=== PATIENT | female | born 1935 | race Caucasian/White ===

== ENCOUNTER 2017-04-06 16:04 | Emergency (ER) | payer MEDICARE, OTHER ==
[~2017-04-06 16:04] MED LIST: CIPR250T6 PO
[2017-04-06] MEDS ORDERED: IOPAMIDOL-370 75 ML VIAL IV ONE (16:16)
[2017-04-06] MEDS ORDERED: ONDANSETRON HCL 4 MG/2 ML VIAL ONE (16:22)
[2017-04-06] MEDS ORDERED: SODIUM CHLORIDE 0.9% 500ML 500 ML IV ONE (17:25)
[2017-04-06 17:41] LABS: CREATININE 0.7 mg/dL (0.5-1.5); POTASSIUM 3.5 mmol/L (3.5-5.1)
[2017-04-06 17:42] LABS: INR 0.94 (0.85-1.15); PARTIAL THROMBOPLASTIN TIME 21.8 SEC (26.3-35.5); PROTHROMBIN TIME 9.9 SEC (9.6-11.6)
[2017-04-06 17:46] LABS: ALBUMIN 3.4 g/dL (3.5-5.0); BILIRUBIN,TOTAL 0.3 mg/dL (0.2-1.0); TOTAL PROTEIN, SERUM 6.4 g/dL (6.0-8.3)
[2017-04-06 18:30] LABS: BASOPHILS % (AUTO) 0.3 % (0.0-5.0); EOSINOPHILS % (AUTO) 0.9 % (0.0-8.0); HEMATOCRIT 35.4 % (36-48); LYMPHOCYTES % (AUTO) 16.6 % (21.0-51.0); MEAN CORPUSCULAR HEMOGLOBIN 31.9 pg (27.0-33.0); MEAN CORPUSCULAR HGB CONC 34.7 g/dL (32.0-36.0); MONOCYTES % (AUTO) 8.3 % (3.0-13.0); NEUTROPHILS % (AUTO) 73.9 % (40.0-77.0); NUCLEATED RED BLOOD CELLS 0.1 % (0.0-0.19); PLATELET COUNT (AUTO) 207 K/uL (130-400); RED BLOOD CELL COUNT(AUTO) 3.85 MIL/uL (4.00-5.50); RED CELL DISTRIBUTION WIDTH 11.9 % (11.0-15.5); WHITE BLOOD COUNT (AUTO) 6.5 K/uL (4.8-10.8)
== END 2017-04-06 21:19 | disposition home or self-care (01) ==
LOC: EDH 16:04
DX: S01.01XA Laceration without foreign body of scalp, initial encounter (principal); R55 Syncope and collapse; I10 Essential (primary) hypertension; Z86.73 Personal history of transient ischemic attack (TIA), and cerebral infarction without residual deficits; W18.39XA Other fall on same level, initial encounter; Y93.89 Activity, other specified; Y92.89 Other specified places as the place of occurrence of the external cause; Y99.8 Other external cause status
CPT/HCPCS: 12031; 36415; 70450; 71260; 72125; 74177; 80053; 83880; 84484; 85025; 85610; 85730; 93005; 96361; 96374; 99285; J2405; J7040; Q9967

== ENCOUNTER 2017-06-22 12:32 | Inpatient (IN) | payer OTHER ==
[~2017-06-22] VITALS: Ht 165.1 cm; Wt 51.9 kg
[2017-06-22] MEDS ORDERED: MORPHINE SULFATE 4 MG/1ML SYG ONE (13:41)
[2017-06-22] MEDS ORDERED: ONDANSETRON HCL MDV 20ML 2 MG/ML VIAL ONE (13:41)
[2017-06-22] MEDS ORDERED: SODIUM CHLORIDE 0.9% 1000ML 1,000 ML IV ONE (13:41)
[2017-06-22 13:43] LABS: BASOPHILS % (AUTO) 0.4 % (0.0-5.0); EOSINOPHILS % (AUTO) 0.1 % (0.0-8.0); HEMATOCRIT 38.1 % (36-48); LYMPHOCYTES % (AUTO) 8.9 % (21.0-51.0); MEAN CORPUSCULAR HEMOGLOBIN 32.7 pg (27.0-33.0); MEAN CORPUSCULAR HGB CONC 34.6 g/dL (32.0-36.0); MEAN CORPUSCULAR VOLUME 94.3 fL (79-99); MONOCYTES % (AUTO) 11.1 % (3.0-13.0); NEUTROPHILS % (AUTO) 79.5 % (40.0-77.0); PLATELET COUNT (AUTO) 216 K/uL (130-400); RED BLOOD CELL COUNT(AUTO) 4.04 MIL/uL (4.00-5.50); WHITE BLOOD COUNT (AUTO) 12.7 K/uL (4.8-10.8)
[2017-06-22] MEDS ORDERED: METOPROLOL TARTRATE 25 MG TAB ONE (13:52)
[2017-06-22] MEDS ORDERED: METOPROLOL TARTRATE 1 MG/ML 5ML VIAL IV ONE (13:52)
[2017-06-22 13:55] LABS: CREATININE 0.7 mg/dL (0.5-1.5); POTASSIUM 3.5 mmol/L (3.5-5.1)
[2017-06-22 14:11] LABS: ALBUMIN 3.1 g/dL (3.5-5.0); BILIRUBIN,TOTAL 0.5 mg/dL (0.2-1.0); CREATINE KINASE MB 0.5 ng/mL (0.5-3.6); MAGNESIUM 1.6 mg/dL (1.80-2.40); PHOSPHORUS 2.8 mg/dL (2.5-4.9); TOTAL PROTEIN, SERUM 6.2 g/dL (6.0-8.3)
[2017-06-22] MEDS ORDERED: PROCHLORPERAZINE EDISYLATE 10 MG/2 ML VIAL ONE (15:35)
[2017-06-22] MEDS ORDERED: ACETAMINOPHEN 325 MG TAB PO PRN ×2 (16:15)
[2017-06-22] MEDS ORDERED: MAG HYDROX/AL HYDROX/SIMETH ES 30 ML SUSP UDCUP PO PRN (16:15)
[2017-06-22] MEDS ORDERED: GUAIFENESIN-DM 200/20 MG 10 ML PO PRN (16:15)
[2017-06-22] MEDS ORDERED: ONDANSETRON HCL MDV 20ML 2 MG/ML VIAL IV PRN (16:15)
[2017-06-22] MEDS ORDERED: LACTULOSE 20 GM/30 ML UDCUP PO PRN (16:15)
[2017-06-22 17:50] VITALS: BP 131/68
[2017-06-22] MEDS ORDERED: ATEN25TA PO (18:25)
[2017-06-22] MEDS ORDERED: FLUO10CA21 PO (18:25)
[2017-06-22] MEDS ORDERED: CHLO10CA6 PO (18:25)
[2017-06-22] MEDS ORDERED: HYDR12.54 PO (18:25)
[2017-06-22] MEDS ORDERED: CLOP75TA14 PO (18:25)
[2017-06-22] MEDS ORDERED: ESTR1TAB17 PO (18:25)
[2017-06-22] MEDS ORDERED: DICL75TA5 PO (18:25)
[2017-06-22] MEDS: CLOPIDOGREL BISULFATE 75 MG TAB PO SCH (18:45)
[2017-06-22 19:25] VITALS: BP 118/63
[2017-06-22] MEDS: METOPROLOL TARTRATE 25 MG TAB PO SCH (22:37)
[2017-06-22] MEDS: FAMOTIDINE 20MG TAB 20 MG TAB PO SCH (22:37)
[2017-06-22] MEDS: ENOXAPARIN SODIUM 60 MG/0.6 ML SQ SCH (22:38)
[2017-06-22 23:39] VITALS: BP 125/49
[2017-06-23 03:53] VITALS: BP 123/85
[2017-06-23 04:53] LABS: HEMATOCRIT 35.7 % (36-48); MEAN CORPUSCULAR HEMOGLOBIN 33.9 pg (27.0-33.0); MEAN CORPUSCULAR HGB CONC 35.1 g/dL (32.0-36.0); MEAN CORPUSCULAR VOLUME 96.4 fL (79-99); PLATELET COUNT (AUTO) 201 K/uL (130-400); RED CELL DISTRIBUTION WIDTH 12.1 % (11.0-15.5); WHITE BLOOD COUNT (AUTO) 7.4 K/uL (4.8-10.8)
[2017-06-23 07:39] VITALS: BP 114/58
[2017-06-23] MEDS ORDERED: MAGNESIUM 2GM PREMIX 50ML 50 ML IV SCH (08:30)
[2017-06-23] MEDS: FLUOXETINE HCL 10 MG CAPSULE PO SCH (09:00)
[2017-06-23] MEDS: CLOPIDOGREL BISULFATE 75 MG TAB PO SCH (09:25)
[2017-06-23] MEDS: METOPROLOL TARTRATE 25 MG TAB PO SCH ×2 (09:25→20:58)
[2017-06-23] MEDS: ENOXAPARIN SODIUM 60 MG/0.6 ML SQ SCH (09:25)
[2017-06-23] MEDS: FAMOTIDINE 20MG TAB 20 MG TAB PO SCH ×2 (09:25→20:58)
[2017-06-23] MEDS: ASPIRIN 81MG TAB.CHEW PO SCH (09:27)
[2017-06-23 11:39] VITALS: BP 90/56
[2017-06-23] MEDS: DIGOXIN 250 MCG/ML 2ML AMP IV SCH (13:48)
[2017-06-23 16:34] VITALS: BP 109/51
[2017-06-23 19:44] VITALS: BP 114/70
[2017-06-23] MEDS: APIXABAN 5 MG TABLET PO SCH (20:58)
[2017-06-23 22:30] LABS: APPEARANCE,URINE Cloudy (CLEAR); BILIRUBIN,URINE Negative (NEGATIVE); COLOR,URINE Yellow (YELLOW); GLUCOSE, URINE (UA) Negative (NEGATIVE); KETONES,URINE Negative (NEGATIVE); LEUKOCYTE ESTERASE ,URINE Negative (NEGATIVE); NITRATE,URINE Negative (NEGATIVE); OCCULT BLOOD,URINE Moderate (NEGATIVE); PH,URINE 5.5 (5.0-8.0); PROTEIN,URINE Negative (NEGATIVE); UROBILINOGEN,URINE 0.2 mg/dL (0.2-1.0)
[2017-06-23 22:39] LABS: BACTERIA,URINE Moderate /HPF (None Seen); RBC,URINE 0-1 /HPF (0-1)
[2017-06-23 23:52] VITALS: BP 129/65
[2017-06-24] VITALS (7 sets, daily range): BP systolic 116–133; BP diastolic 56–91
[2017-06-24 04:40] LABS: HEMATOCRIT 35.3 % (36-48); MEAN CORPUSCULAR HEMOGLOBIN 33.2 pg (27.0-33.0); MEAN CORPUSCULAR HGB CONC 35.2 g/dL (32.0-36.0); MEAN CORPUSCULAR VOLUME 94.4 fL (79-99); PLATELET COUNT (AUTO) 190 K/uL (130-400); RED BLOOD CELL COUNT(AUTO) 3.74 MIL/uL (4.00-5.50); RED CELL DISTRIBUTION WIDTH 11.9 % (11.0-15.5); WHITE BLOOD COUNT (AUTO) 6.5 K/uL (4.8-10.8)
[2017-06-24 04:56] LABS: CREATININE 0.6 mg/dL (0.5-1.5); MAGNESIUM 2.1 mg/dL (1.80-2.40)
[2017-06-24 05:23] LABS: LYMPHOCYTES % (MANUAL) 23 % (22-44); MONOCYTES % (MANUAL) 10 % (2-9); REACTIVE LYMPHOCYTES 3 % (0-0); SEGMENTED NEUTROPHILS % 64 % (40-70)
[2017-06-24 05:24] LABS: MAN.DIFF COMMENT-IMPRESSION MANUAL DIFFERENTIAL; PLATELET MORPHOLOGY COMMENT ADEQUATE
[2017-06-24] MEDS ORDERED: POTASSIUM CHLORIDE 10% ELIXIR 20 MEQ/15 ML UDCUP PO PRN (08:30)
[2017-06-24] MEDS ORDERED: POTASSIUM CHLORIDE 20MEQ/100ML 100 ML IV PRN (08:30)
[2017-06-24] MEDS ORDERED: LIDOCAINE HCL-MPF 1% 2ML VIAL IVP PRN (08:30)
[2017-06-24] MEDS: FAMOTIDINE 20MG TAB 20 MG TAB PO SCH ×2 (09:00→20:57)
[2017-06-24] MEDS: ASPIRIN 81MG TAB.CHEW PO SCH (10:11)
[2017-06-24] MEDS: METOPROLOL TARTRATE 25 MG TAB PO SCH ×2 (10:11→20:55)
[2017-06-24] MEDS: APIXABAN 5 MG TABLET PO SCH ×2 (10:11→20:55)
[2017-06-24] MEDS: FLUOXETINE HCL 10 MG CAPSULE PO SCH (10:11)
[2017-06-24] MEDS: DIGOXIN 250 MCG/ML 2ML AMP IV SCH (10:12)
[2017-06-24] MEDS: POTASSIUM CHLORIDE 20 MEQ ERTAB PO PRN ×3 (15:20→19:09)
[2017-06-25 03:00] VITALS: BP 125/73
[2017-06-25 04:56] LABS: CREATININE 0.6 mg/dL (0.5-1.5); POTASSIUM 4.2 mmol/L (3.5-5.1)
[2017-06-25 07:00] VITALS: BP 131/69
[2017-06-25] MEDS: DIGOXIN 250 MCG/ML 2ML AMP IV SCH (07:17)
[2017-06-25] MEDS: FAMOTIDINE 20MG TAB 20 MG TAB PO SCH ×2 (08:12→22:38)
[2017-06-25] MEDS: APIXABAN 5 MG TABLET PO SCH (08:12)
[2017-06-25] MEDS: FLUOXETINE HCL 10 MG CAPSULE PO SCH (08:12)
[2017-06-25] MEDS: METOPROLOL TARTRATE 25 MG TAB PO SCH ×2 (08:12→22:38)
[2017-06-25] MEDS: APIXABAN 2.5 MG TABLET PO SCH ×2 (09:56→22:37)
[2017-06-25 11:00] VITALS: BP 112/75
[2017-06-25 16:00] VITALS: BP 112/71
[2017-06-25 19:41] VITALS: BP 158/71
[2017-06-25] MEDS ORDERED: APIXABAN 5 MG TABLET PO ONE (21:52)
[2017-06-26 00:14] VITALS: BP 115/63
[2017-06-26 04:32] VITALS: BP 118/68
[2017-06-26 07:00] VITALS: BP 133/69
[2017-06-26] MEDS: APIXABAN 2.5 MG TABLET PO SCH (07:29)
[2017-06-26] MEDS: METOPROLOL TARTRATE 25 MG TAB PO SCH (07:29)
[2017-06-26] MEDS: FLUOXETINE HCL 10 MG CAPSULE PO SCH (07:29)
[2017-06-26] MEDS: FAMOTIDINE 20MG TAB 20 MG TAB PO SCH (07:29)
[2017-06-26] MEDS ORDERED: METOPROLOL TARTRATE 25 MG TAB PO SCH (09:00)
[2017-06-26 11:00] VITALS: BP 102/63
[2017-06-26 16:00] VITALS: BP 117/68
== END 2017-06-26 19:20 | DRG 65 ==
LOC: EDH 12:32 → OBSVTOIN 16:15 → EDHIP 16:15 → 2DH 17:30
PROVIDERS: ADMIT Family Medicine; ATTEND Family Medicine
DX: I63.40 Cerebral infarction due to embolism of unspecified cerebral artery (principal); E44.1 Mild protein-calorie malnutrition; I48.91 Unspecified atrial fibrillation; E78.5 Hyperlipidemia, unspecified; I10 Essential (primary) hypertension; I49.3 Ventricular premature depolarization; F32.9 Major depressive disorder, single episode, unspecified; Z79.02 Long term (current) use of antithrombotics/antiplatelets; Z90.710 Acquired absence of both cervix and uterus; Z82.49 Family history of ischemic heart disease and other diseases of the circulatory system
CPT/HCPCS: 36415; 70450; 70544; 70547; 70551; 71045; 80048; 80053; 81001; 82550; 82553; 82948; 83690; 83735; 84100; 84484; 85025; 85027; 93005; 93306; 93880; J0780; J1160; J1650; J2270; J3490; J7030

== ENCOUNTER → 2018-01-24 | Outpatient (CLI) | payer OTHER ==
[~2018-01-24] MED LIST changes: +ATEN25TA PO; +CHLO10CA6 PO; -CIPR250T6 PO; +CLOP75TA14 PO; +DICL75TA5 PO; +ESTR1TAB17 PO; +FLUO10CA21 PO; +HYDR12.54 PO
== END | disposition home or self-care (01) ==
LOC: RAH 12:42
PROVIDERS: ATTEND Internal Medicine Cardiovascular Disease
DX: S09.90XA Unspecified injury of head, initial encounter (principal); G31.9 Degenerative disease of nervous system, unspecified; R90.82 White matter disease, unspecified; W19.XXXA Unspecified fall, initial encounter; Y93.89 Activity, other specified; Y92.89 Other specified places as the place of occurrence of the external cause; Y99.8 Other external cause status
CPT/HCPCS: 70450

== ENCOUNTER 2019-08-05 12:34 | Observation (INO) | payer OTHER ==
[~2019-08-05] VITALS: Ht 162.6 cm; Wt 61.8 kg
[2019-08-05] MEDS ORDERED: MORPHINE SULFATE 2 MG/ML 1ML SYG ONE ×3 (13:17→14:51)
[2019-08-05 13:55] LABS: BASOPHILS % (AUTO) 0.6 % (0.0-5.0); EOSINOPHILS % (AUTO) 0.6 % (0.0-8.0); HEMATOCRIT 35.9 % (36-48); LYMPHOCYTES % (AUTO) 26.5 % (21.0-51.0); MEAN CORPUSCULAR HEMOGLOBIN 30.8 pg (27.0-33.0); MEAN CORPUSCULAR HGB CONC 33.1 g/dL (32.0-36.0); MONOCYTES % (AUTO) 8.3 % (3.0-13.0); NEUTROPHILS % (AUTO) 63.2 % (40.0-77.0); PLATELET COUNT (AUTO) 170 K/uL (130-400); RED BLOOD CELL COUNT(AUTO) 3.86 MIL/uL (4.00-5.50); RED CELL DISTRIBUTION WIDTH 12.9 % (11.0-15.5); WHITE BLOOD COUNT (AUTO) 5.3 K/uL (4.8-10.8)
[2019-08-05] MEDS ORDERED: LIDOCAINE 5% TOPICAL PATCH TP ONE (14:07)
[2019-08-05 14:09] LABS: CREATININE 0.8 mg/dL (0.5-1.5); POTASSIUM 4.1 mmol/L (3.5-5.1)
[2019-08-05 14:14] LABS: BILIRUBIN,TOTAL 0.7 mg/dL (0.2-1.0); INR 1.02 (0.85-1.15); PARTIAL THROMBOPLASTIN TIME 23.8 SEC (26.3-35.5); TOTAL PROTEIN, SERUM 6.7 g/dL (6.0-8.3)
[2019-08-05] MEDS ORDERED: IOHEXOL-350 75 ML VIAL IV ONE (14:23)
[2019-08-05 14:41] LABS: APPEARANCE,URINE Clear (CLEAR); BILIRUBIN,URINE Negative (NEGATIVE); COLOR,URINE Yellow (YELLOW); GLUCOSE, URINE (UA) Negative (NEGATIVE); KETONES,URINE Negative (NEGATIVE); LEUKOCYTE ESTERASE ,URINE Trace (NEGATIVE); NITRATE,URINE Negative (NEGATIVE); OCCULT BLOOD,URINE Small (NEGATIVE); PROTEIN,URINE Negative (NEGATIVE); UROBILINOGEN,URINE 0.2 mg/dL (0.2-1.0)
[2019-08-05 15:24] LABS: BACTERIA,URINE Rare /HPF (None Seen); SQUAMOUS EPITHELIAL CELL,UR Rare /HPF (0-2)
[2019-08-05] MEDS: HEPARIN SODIUM 5000UNIT/ML 1ML VIAL SQ SCH (16:45)
[2019-08-05] MEDS ORDERED: CHLORDIAZEPOXIDE HCL 10 MG CAPSULE PO PRN (16:45)
[2019-08-05] MEDS ORDERED: ACETAMINOPHEN 325 MG TAB PO PRN ×2 (16:45)
[2019-08-05] MEDS ORDERED: HYDROMORPHONE 4MG/ML 1ML VIAL IVP PRN (16:45)
[2019-08-05] MEDS ORDERED: ONDANSETRON HCL 4 MG/2 ML VIAL IVP PRN (17:30)
[2019-08-05] MEDS ORDERED: HYDROMORPHONE 1 MG/1 ML AMP ONE (20:32)
[2019-08-05] MEDS: HYDROMORPHONE HCL 0.5 MG/0.5 ML ML IVP PRN (20:37)
[2019-08-05] MEDS ORDERED: HEPARIN SODIUM 5000UNIT/ML 1ML VIAL ONE (20:46)
[2019-08-05 23:00] VITALS: BP 165/99
--- NOTE | 2019-08-05 23:00 | NUR ---
ER ADMIT Admitted from ER,aao x 4,c/o pain to left rib cage,unable to get up to do orthostatic vs.Pt arrived with a hartman catheter,secured with statlock.Home meds were reconciled in ED per Dr Ayoub.Advised pt to have family bring updated home med list in am.Pt denies sob.Encouraged to do IS. Addendum: 08/06/19 at 0349 by JOSE ALEJANDRO MEZA RN RN Unable to do Orthostatic VS,pt c/o of pain when she moves.
[2019-08-05] MEDS: ATENOLOL 25 MG TABLET PO SCH (23:16)
[2019-08-05] MEDS: HYDROCODONE/ACETAMINOPHEN 5/325 MG TAB PO PRN (23:17)
--- NOTE | 2019-08-06 01:30 | NUR ---
STATUS Pt appears to be resting,voiced no complaints of pain or sob.
[2019-08-06] MEDS: HYDROMORPHONE HCL 0.5 MG/0.5 ML ML IVP PRN ×2 (03:18→12:09)
--- NOTE | 2019-08-06 03:18 | NUR ---
PAIN Pt woke up in a lot of pain,states "It hurts when I take a deep breathe".Medicated with Dilaudid as per order.
[2019-08-06] MEDS: HEPARIN SODIUM 5000UNIT/ML 1ML VIAL SQ SCH ×2 (03:40→08:48)
[2019-08-06 04:00] VITALS: BP 121/58
[2019-08-06] MEDS ORDERED: KETOROLAC TROMETHAMINE 15MG/ML IV PRN (04:15)
--- NOTE | 2019-08-06 05:16 | NUR ---
MED EFFECT Pt appears more calm,resting quietly,no signs of pain noted after dilaudid and tylenol was given.Pt reinstructed re use of IS.
[2019-08-06 07:19] LABS: HEMATOCRIT 33.2 % (36-48); MEAN CORPUSCULAR HEMOGLOBIN 31.1 pg (27.0-33.0); MEAN CORPUSCULAR HGB CONC 32.8 g/dL (32.0-36.0); MEAN CORPUSCULAR VOLUME 94.6 fL (79-99); RED BLOOD CELL COUNT(AUTO) 3.51 MIL/uL (4.00-5.50); RED CELL DISTRIBUTION WIDTH 12.8 % (11.0-15.5)
[2019-08-06 07:41] LABS: CREATININE 0.8 mg/dL (0.5-1.5); POTASSIUM 3.6 mmol/L (3.5-5.1); THYROID STIMULATING HORMONE 2.47 uIU/mL (0.36-3.74)
[2019-08-06 08:17] VITALS: BP 113/51
[2019-08-06] MEDS: ESTRADIOL 0.5 MG TABLET PO SCH (08:36)
[2019-08-06] MEDS: CLOPIDOGREL BISULFATE 75 MG TAB PO SCH (08:38)
[2019-08-06] MEDS: FLUOXETINE HCL 10 MG CAPSULE PO SCH (08:38)
[2019-08-06] MEDS: ATENOLOL 25 MG TABLET PO SCH ×2 (08:38→20:51)
[2019-08-06] MEDS: HYDROCODONE/ACETAMINOPHEN 5/325 MG TAB PO PRN ×2 (08:38→15:03)
[2019-08-06] MEDS: LIDOCAINE 5% TOPICAL PATCH TP SCH (08:48)
[2019-08-06] MEDS ORDERED: NON-FORMULARY MEDICATION 1 EACH (Hydrochlorothiazide 12.5 MG) PO SCH (09:00)
--- NOTE | 2019-08-06 09:00 | NUR ---
DYSPHAGIA TATYANA COMPLETED NO S/S OF ASPIRATION AT THIS TIME. RECOMMEND REGULAR SOLIDS, THIN LIQUIDS TOLERATED WITH PILLS WHOLE WITH LIQUIDS. CUSTOMER SERVICE ADMINISTRATOR EDUCATED Pt ON RISKS AND CONSEQUENCES OF ASPIRATION. CUSTOMER SERVICE ADMINISTRATOR COORDINATED CARE AND RECOMMENDATIONS WITH NURSE RICARDO. ALL QUESTIONS ANSWERED AT THIS TIME. Addendum: 08/06/[address] PENG Amended: Links added.
[2019-08-06 12:23] VITALS: BP 136/80
--- NOTE | 2019-08-06 14:49 | NUR ---
RD NOTIFICATION - TRIGGER Pt admitted s/p fall, multi-rib fracture. Pt with Heart Healthy diet order in place. Pt is tolerating diet order with no report of GI distress, and with good PO intake. S/p Pulmonary consult. Recommend Continue Heart Healthy Diet order. Recommend Ensure BID. RD to continue to monitor. Please notify as additional nutrition concerns arise. Thank you. Addendum: 08/06/19 at [address] Amended: Links added.
--- NOTE | 2019-08-06 15:53 | NUR ---
CM NOTE/IA MEET WITH PATIENT IN ROOM. PER PATIENT, LIVES WITH SPOUSE, NO HOME HEALTH OR PROVIDER SERVICES IN USE, NO DME BUT HAS A BENCH BUILT IN SHOWER, WILL BE STAYING WITH DAUGHTER AFTER HOSPITAL FOR ADDED SUPPORT AND MONITORING (GINA QUINTANA [phone]). PER PATIENT, SON IS A DOCTOR AND WILL SET UP HOME HEALTH THRU HIS OFFICE. OFFICE OF DR. BRYCE ROSARIO CALLED, CONFIRMED PATIENT TO HAVE HOME HEALTH SERVICES THRU DR. ROSARIO. PATIENT DCP HOME TO [facility]. Addendum: 08/07/19 at 1555 by LACIE KIM RN CM Amended: Links added.
[2019-08-06 16:33] VITALS: BP 143/93
[2019-08-06 20:12] VITALS: BP 144/64
[2019-08-06] MEDS ORDERED: DOCUSATE SODIUM 100 MG CAP PO PRN (20:30)
[2019-08-06] MEDS: GABAPENTIN 100 MG CAPSULE PO SCH (20:48)
[2019-08-06] MEDS: BACLOFEN 10 MG TABLET PO SCH (20:55)
[2019-08-07] VITALS: BP 153/73
[2019-08-07 04:00] VITALS: BP 159/76
[2019-08-07 04:08] LABS: HEMATOCRIT 34.9 % (36-48); MEAN CORPUSCULAR HEMOGLOBIN 30.5 pg (27.0-33.0); MEAN CORPUSCULAR HGB CONC 32.4 g/dL (32.0-36.0); MEAN CORPUSCULAR VOLUME 94.1 fL (79-99); RED BLOOD CELL COUNT(AUTO) 3.71 MIL/uL (4.00-5.50); RED CELL DISTRIBUTION WIDTH 12.7 % (11.0-15.5); WHITE BLOOD COUNT (AUTO) 7.6 K/uL (4.8-10.8)
[2019-08-07 04:19] LABS: CREATININE 0.8 mg/dL (0.5-1.5); POTASSIUM 3.7 mmol/L (3.5-5.1)
[2019-08-07] MEDS: HYDROMORPHONE HCL 0.5 MG/0.5 ML ML IVP PRN (05:03)
[2019-08-07] MEDS ORDERED: POTASSIUM CHLORIDE 10% ELIXIR 20 MEQ/15 ML UDCUP ONE (05:17)
[2019-08-07 08:16] VITALS: BP 157/83
[2019-08-07] MEDS ORDERED: APIXABAN 5 MG TABLET PO SCH (09:00)
[2019-08-07] MEDS: CLOPIDOGREL BISULFATE 75 MG TAB PO SCH (09:54)
[2019-08-07] MEDS: ATENOLOL 25 MG TABLET PO SCH (09:54)
[2019-08-07] MEDS: ESTRADIOL 0.5 MG TABLET PO SCH (09:55)
[2019-08-07] MEDS: FLUOXETINE HCL 10 MG CAPSULE PO SCH (09:55)
[2019-08-07] MEDS: BACLOFEN 10 MG TABLET PO SCH ×2 (09:55→15:01)
[2019-08-07] MEDS: GABAPENTIN 100 MG CAPSULE PO SCH (09:55)
[2019-08-07] MEDS: LIDOCAINE 5% TOPICAL PATCH TP SCH (09:56)
[2019-08-07 11:52] VITALS: BP 134/78
[2019-08-07] MEDS: HYDROCODONE/ACETAMINOPHEN 5/325 MG TAB PO PRN (15:01)
--- NOTE | 2019-08-07 15:15 | NUR ---
PATIENT DISCHARGED AT THIS TIME; SON WAS GIVEN DC INSTRUCTIONS AND PRESCRIPTION; COPY OF PRESCRIPTION IN CHART; PIVX2 REMOVED, TELEPACK REMOVED, AND DIANA CATHETER REMOVED
== END 2019-08-07 15:20 | disposition home or self-care (01) ==
LOC: EDH 12:34 → INTOOBSV 15:52 → EDHIP 15:52 → 4BH 23:44
PROVIDERS: ADMIT Surgery; ATTEND Surgery
DX: S22.42XA Multiple fractures of ribs, left side, initial encounter for closed fracture (principal); S27.321A Contusion of lung, unilateral, initial encounter; I48.91 Unspecified atrial fibrillation; I10 Essential (primary) hypertension; M19.90 Unspecified osteoarthritis, unspecified site; Z86.73 Personal history of transient ischemic attack (TIA), and cerebral infarction without residual deficits; Z79.01 Long term (current) use of anticoagulants; Z79.899 Other long term (current) drug therapy; W01.0XXA Fall on same level from slipping, tripping and stumbling without subsequent striking against object, initial encounter; Y93.01 Activity, walking, marching and hiking; Y92.89 Other specified places as the place of occurrence of the external cause
CPT/HCPCS: 36415 ×3; 70450; 71045 ×2; 71250; 72125; 73060; 73502; 73552; 74177; 80048 ×2; 80053; 81001; 84443; 84484; 85025; 85027 ×2; 85610; 85730; 92610; 93005; 94760; 96372; 96374; 96376 ×2; 97039 ×3; 97161; 99291; A4606; G0378 ×46; G8978; G8979; G8980; G8981; G8982; G8983; J1170 ×4; J1644 ×2; Q9967

== ENCOUNTER → 2019-08-27 | Outpatient (CLI) | payer OTHER ==
[~2019-08-27] MED LIST changes: +APIX2.5T PO; -ATEN25TA PO; -DICL75TA5 PO; +ESOM20CA60 PO; +METO-408 PO; +NITR100C4 PO
== END | disposition home or self-care (01) ==
LOC: RAH 14:11
PROVIDERS: ATTEND Family Medicine
DX: S22.42XA Multiple fractures of ribs, left side, initial encounter for closed fracture (principal); R51 Headache; R05 Cough; I70.8 Atherosclerosis of other arteries; G31.9 Degenerative disease of nervous system, unspecified; X58.XXXA Exposure to other specified factors, initial encounter; Y93.89 Activity, other specified; Y92.89 Other specified places as the place of occurrence of the external cause; Y99.8 Other external cause status
CPT/HCPCS: 70450; 71046

== ENCOUNTER 2019-10-23 21:50 | Inpatient (IN) | payer OTHER ==
[~2019-10-23] VITALS: Ht 157.5 cm; Wt 57.2 kg
[~2019-10-23 21:50] MED LIST changes: -APIX2.5T PO; -ESOM20CA60 PO; -METO-408 PO; -NITR100C4 PO
[2019-10-23 22:31] LABS: BASOPHILS % (AUTO) 0.4 % (0.0-5.0); EOSINOPHILS % (AUTO) 2.1 % (0.0-8.0); HEMATOCRIT 37.7 % (36-48); LYMPHOCYTES % (AUTO) 47.7 % (21.0-51.0); MEAN CORPUSCULAR HEMOGLOBIN 31.6 pg (27.0-33.0); MEAN CORPUSCULAR HGB CONC 33.2 g/dL (32.0-36.0); MEAN CORPUSCULAR VOLUME 95.2 fL (79-99); NEUTROPHILS % (AUTO) 40.1 % (40.0-77.0); PLATELET COUNT (AUTO) 237 K/uL (130-400); RED BLOOD CELL COUNT(AUTO) 3.96 MIL/uL (4.00-5.50); RED CELL DISTRIBUTION WIDTH 13.2 % (11.0-15.5); WHITE BLOOD COUNT (AUTO) 9.8 K/uL (4.8-10.8)
[2019-10-23] MEDS ORDERED: ONDANSETRON HCL 4 MG/2 ML VIAL ONE (22:46)
[2019-10-23 22:49] LABS: INR 0.92 (0.85-1.15); PARTIAL THROMBOPLASTIN TIME 22.4 SEC (26.3-35.5)
[2019-10-23 22:50] LABS: CREATININE 0.8 mg/dL (0.5-1.5); POTASSIUM 3.1 mmol/L (3.5-5.1)
[2019-10-23 22:54] LABS: ALBUMIN 3.9 g/dL (3.5-5.0); BILIRUBIN,TOTAL 0.4 mg/dL (0.2-1.0); TOTAL PROTEIN, SERUM 7.2 g/dL (6.0-8.3)
[2019-10-23] MEDS ORDERED: MORPHINE SULFATE 2 MG/ML 1ML SYG ONE (23:48)
[2019-10-24] VITALS (32 sets, daily range): BP systolic 111–178; BP diastolic 63–98
[2019-10-24] MEDS ORDERED: MORPHINE SULFATE 2 MG/ML 1ML SYG IVP PRN ×2 (01:15→16:00)
[2019-10-24] MEDS ORDERED: ACETAMINOPHEN 325 MG TAB PO PRN ×2 (01:15→05:45)
[2019-10-24] MEDS ORDERED: ONDANSETRON HCL 4 MG/2 ML VIAL ONE ×2 (03:52→13:20)
[2019-10-24] MEDS ORDERED: MORPHINE SULFATE 2 MG/ML 1ML SYG ONE (03:52)
[2019-10-24 06:12] LABS: HEMATOCRIT 36.4 % (36-48); MEAN CORPUSCULAR HEMOGLOBIN 31.4 pg (27.0-33.0); MEAN CORPUSCULAR HGB CONC 32.4 g/dL (32.0-36.0); MEAN CORPUSCULAR VOLUME 96.8 fL (79-99); RED BLOOD CELL COUNT(AUTO) 3.76 MIL/uL (4.00-5.50); RED CELL DISTRIBUTION WIDTH 13.2 % (11.0-15.5); WHITE BLOOD COUNT (AUTO) 10.7 K/uL (4.8-10.8)
[2019-10-24 06:25] LABS: ALBUMIN 3.6 g/dL (3.5-5.0); BILIRUBIN,TOTAL 0.5 mg/dL (0.2-1.0); CREATININE 0.6 mg/dL (0.5-1.5); POTASSIUM 4.4 mmol/L (3.5-5.1); TOTAL PROTEIN, SERUM 6.8 g/dL (6.0-8.3)
[2019-10-24 06:35] LABS: INR 0.93 (0.85-1.15); PARTIAL THROMBOPLASTIN TIME 23.8 SEC (26.3-35.5); PROTHROMBIN TIME 10.1 SEC (9.6-11.6)
--- NOTE | 2019-10-24 07:05 | NUR ---
ROUNDS ORTHO DR. CHRISTINA HERE TO SEE PATIENT. HE SPOKE WITH HER AND PATIENT WANTED FOR HIM TO TALK TO HER SON REGIS ROSARIO. HE SAID HE WILL AND WILL AND AFTERWARDS WILL SEE HOW TO PROCEED.
[2019-10-24] MEDS ORDERED: CEFAZOLIN SODIUM 1 GM VIAL IVP PRN (07:45)
--- NOTE | 2019-10-24 08:00 | NUR ---
NOTE AAOX3. C/O PAIN TO LEFT HIP. WILL MEDICATE PRN. NO N/V SHE IS NPO FOR POSSIBLE SURGERY FOR LEFT FEMORAL NECK FRACTURE. LEFT LEG SHORTER THAN RIGHT. NO TRACTION ORDERED. DR CHRISTINA WAS JUST HERE TO EVALUATE FOR SURGERY BUT WILL WAIT FOR MEDICAL CLEARANCE. SOON DR CHRISTINA LEFT, HER SON ABRAHAM SHOWED UP. HE SAID SHE HAD TAKEN ELIQUIS FOR CHRONIC A-FIB AND LAST DOSE WAS LAST NIGHT. HE IS GOING TO SPEAK TO CARRI REGARDING THIS AND PLAN WHEN SURGERY WILL TAKE PLACE. WILL CONTINUE KEEPING HER NPO.
[2019-10-24] MEDS: FLUOXETINE HCL 10 MG CAPSULE PO SCH (09:26)
[2019-10-24] MEDS: HYDROCODONE/ACETAMINOPHEN 5/325 MG TAB PO PRN ×2 (09:26→20:41)
[2019-10-24] MEDS: SODIUM CHLORIDE 0.9% 1000ML 1,000 ML IV SCH ×2 (09:26→14:35)
--- NOTE | 2019-10-24 10:14 | NUR ---
DCP CM unable to meet w/pt, called son on facesheet, spoke to Dr Luis Ames discussed dc plans. As per son pt is independent prior to admission and fall, lives at home with spouse. Denies any equipments/services. Feels safe to go back home, family able to assist with transportation and needs as necessary. Updated son w/POC. Informed son regarding possible short term rehab after surgery, son at this time verbalized "I don't know yet, we'll have to wait until after surgery." CM informed son will call again after surgery once PT done, and pt closer to DC. DC plan to home vs SNF. CM to cont to follow up. Addendum: 10/24/19 at 1017 by KAMLA LINDER LVN CM Amended: Links added.
--- NOTE | 2019-10-24 11:10 | NUR ---
CHART CHECK COMPLETED. Pt IS AN 84 Y.O. FEMALE ADMITTED SECONDARY TO L FEMORAL HEAD FRACTURE. 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 Pt CURRENTLY NPO SECONDARY TO POSSIBLE SURGICAL INTERVENTION. PLEASE REQUEST FORMAL SKILLED SPEECH/SWALLOW EVALUATION IF Pt PRESENTS WITH +S/S OF ASPIRATION SUCH COUGH RESPONSE, THROAT CLEAR, OR WET VOCAL QUALITY DURING P.O. Addendum: 10/24/19 at 1112 by SHANA WAGNER [facility] ST Amended: Links added.
--- NOTE | 2019-10-24 11:30 | NUR ---
NOTE TRANSFERRED TO ROOM 314 FOR SHE DID NOT HAVE COVID SYMPTOMS AND MIGHT HAVE BEEN TESTED FOR COVID IN REP FOR POSSIBLE SURGERY. SHE IS MOVING OUT OF COVID UNIT.
--- NOTE | 2019-10-24 12:00 | NUR ---
PT TSF FROM 310 RECEIVED REPORT FROM CAMERON MALCOLM, PT TSF BY TOMI, PT, A/A X3 V/S STABLE, C/O PAIN TO THE LEFT HIP.6 OUT OF 10, WILL CONTINUE TO MONITOR.
--- NOTE | 2019-10-24 12:37 | NUR ---
RD NOTIFICATION Pt admitted s/p Fall pending surgical procedure. NPO pending procedure. Pt with advanced age. Recommend advance diet as tolerated to Heart Healthy post procedure or when medically feasible. RD to continue to monitor.
[2019-10-24] MEDS ORDERED: PROPOFOL 10 MG/ML 20ML VIAL IV ONE (13:20)
[2019-10-24] MEDS ORDERED: LIDOCAINE PF 2% 5ML ABBOJECT ONE (13:20)
[2019-10-24] MEDS ORDERED: PHENYLEPHRINE HCL 10 MG/ML 1ML VIAL IV ONE ×2 (13:24→14:14)
[2019-10-24] MEDS ORDERED: ROCURONIUM 10MG/1ML SYR 10 MG/ML ML ONE (13:24)
[2019-10-24] MEDS ORDERED: TRANEXAMIC ACID 1000MG/10ML ONE (13:44)
[2019-10-24] MEDS ORDERED: FENTANYL CITRATE PF 50 MCG/1 ML 2ML VIAL ONE (14:14)
[2019-10-24] MEDS ORDERED: VANCOMYCIN HCL 1 GM VIAL ONE (14:24)
[2019-10-24] MEDS ORDERED: CEFAZOLIN SODIUM 1 GM VIAL IVP SCH (16:00)
[2019-10-24] MEDS ORDERED: LABETALOL HCL 5 MG/ML 20ML VIAL IV ONE (16:02)
[2019-10-24] MEDS ORDERED: DEXAMETHASONE SOD PHOSPHATE 4 MG/ML 5ML VIAL ONE (16:43)
--- NOTE | 2019-10-24 17:44 | NUR ---
POST OP PT CAME FROM OR BY BED WITH CLAUDIA RN, PT IS RESTING COMFORTABLY DRESSING IS DRY INTACT, RT DP INTACT, LEG IS WARM, V/S STABLE. WILL CONTINUE TO MONITOR. ALSO CALLED SON REGIS ROSARIO TO GIVE UPDATE.
[2019-10-24] MEDS: OXYCODONE HCL 5 MG TAB PO PRN ×2 (18:38→22:27)
--- NOTE | 2019-10-24 19:40 | NUR ---
PM Assessment Received pt awake lying in bed with one pillow in between her leg, routine assessment done, plan of care discuss, pt reminded only on clear liquid diet for now. Pt claimed she knows she was given a black to control her pain but claimed earlier she started to feel the pain & was given the Oxycodone & this medication helps her with pain issues. Pt verbalizes concern how she will be going home with her current situation, maybe as claimed she will need some rehab. I made her aware for sure we will start doing therapy here then possible placement IRU vs SNF. Pt mention preference in going to [facility].
[2019-10-25 00:12] VITALS: BP 133/76
[2019-10-25] MEDS: SODIUM CHLORIDE 0.9% 1000ML 1,000 ML IV SCH ×3 (00:29→21:42)
[2019-10-25] MEDS ORDERED: CEFAZOLIN SODIUM 1 GM VIAL ONE (01:16)
[2019-10-25 03:52] LABS: BASOPHILS % (AUTO) 0.1 % (0.0-5.0); EOSINOPHILS % (AUTO) 0.7 % (0.0-8.0); HEMATOCRIT 32.2 % (36-48); LYMPHOCYTES % (AUTO) 3.9 % (21.0-51.0); MEAN CORPUSCULAR HEMOGLOBIN 31.8 pg (27.0-33.0); MEAN CORPUSCULAR HGB CONC 32.6 g/dL (32.0-36.0); MEAN CORPUSCULAR VOLUME 97.6 fL (79-99); MONOCYTES % (AUTO) 7.1 % (3.0-13.0); NEUTROPHILS % (AUTO) 87.9 % (40.0-77.0); PLATELET COUNT (AUTO) 165 K/uL (130-400); RED CELL DISTRIBUTION WIDTH 13.2 % (11.0-15.5); WHITE BLOOD COUNT (AUTO) 11.9 K/uL (4.8-10.8)
[2019-10-25] MEDS: OXYCODONE HCL 5 MG TAB PO PRN ×3 (03:56→21:42)
[2019-10-25 04:09] LABS: CREATININE 0.7 mg/dL (0.5-1.5); POTASSIUM 3.8 mmol/L (3.5-5.1)
[2019-10-25 04:19] LABS: PLATELET MORPHOLOGY PLT CLUMPS PRESENT
[2019-10-25 04:24] VITALS: BP 152/93
--- NOTE | 2019-10-25 07:30 | NUR ---
SON DR REGIS ROSARIO CAME TO VISIT WITH HIS MOM AND BOUGHT HER BREAKFAST
[2019-10-25 08:00] VITALS: BP 126/68
[2019-10-25] MEDS: FLUOXETINE HCL 10 MG CAPSULE PO SCH (08:11)
[2019-10-25] MEDS ORDERED: APIX2.5T PO (08:14)
--- NOTE | 2019-10-25 10:15 | NUR ---
DR. AMANDA PAGED DR. CHRISTINA TO ASK IF PT EVAL IS NEEDED FOR POST OP LEFT HIP AND TO RESTART ELIQUIS 2.5 MG BID.
[2019-10-25] MEDS ORDERED: CHLORDIAZEPOXIDE HCL 10 MG CAPSULE PO PRN (10:45)
[2019-10-25 11:26] VITALS: BP 145/65
[2019-10-25] MEDS: ONDANSETRON HCL 4 MG/2 ML VIAL IVP PRN ×2 (15:27→20:04)
[2019-10-25] MEDS: MORPHINE SULFATE 2 MG/ML 1ML SYG IVP PRN ×2 (15:28→20:06)
[2019-10-25 16:00] VITALS: BP 124/64
[2019-10-25] MEDS ORDERED: ONDANSETRON HCL 4 MG/2 ML VIAL IVP PRN (16:00)
[2019-10-25] MEDS ORDERED: APIXABAN 2.5 MG TABLET PO ONE (18:37)
[2019-10-25 19:51] VITALS: BP 126/76
[2019-10-25] MEDS: APIXABAN 2.5 MG TABLET PO SCH (19:52)
--- NOTE | 2019-10-25 22:15 | NUR ---
patient dangled her feet at the side of the bed
[2019-10-26] VITALS (7 sets, daily range): BP systolic 99–138; BP diastolic 56–81
[2019-10-26] MEDS: OXYCODONE HCL 5 MG TAB PO PRN ×2 (02:02→09:31)
[2019-10-26 03:57] LABS: BASOPHILS % (AUTO) 0.5 % (0.0-5.0); EOSINOPHILS % (AUTO) 1.7 % (0.0-8.0); HEMATOCRIT 27.7 % (36-48); LYMPHOCYTES % (AUTO) 9.2 % (21.0-51.0); MEAN CORPUSCULAR HEMOGLOBIN 31.4 pg (27.0-33.0); MEAN CORPUSCULAR HGB CONC 32.1 g/dL (32.0-36.0); MEAN CORPUSCULAR VOLUME 97.9 fL (79-99); MONOCYTES % (AUTO) 11.7 % (3.0-13.0); NEUTROPHILS % (AUTO) 76.6 % (40.0-77.0); PLATELET COUNT (AUTO) 136 K/uL (130-400); RED BLOOD CELL COUNT(AUTO) 2.83 MIL/uL (4.00-5.50); RED CELL DISTRIBUTION WIDTH 12.9 % (11.0-15.5); WHITE BLOOD COUNT (AUTO) 10.7 K/uL (4.8-10.8)
[2019-10-26 04:12] LABS: CREATININE 0.6 mg/dL (0.5-1.5); POTASSIUM 3.2 mmol/L (3.5-5.1)
[2019-10-26] MEDS ORDERED: POTASSIUM CHLORIDE 10% ELIXIR 20 MEQ/15 ML UDCUP PO PRN (04:30)
[2019-10-26] MEDS ORDERED: LIDOCAINE HCL-MPF 1% 2ML VIAL IV PRN (04:30)
[2019-10-26] MEDS ORDERED: POTASSIUM CHLORIDE 20MEQ/100ML 100 ML IV PRN (04:30)
--- NOTE | 2019-10-26 04:32 | NUR ---
PATIENT IS ANXIOUS THROUGHOUT THE NIGHT. SHE IS AFRAID TO HAVE A BOWEL MOVEMENT BECAUSE "I DO NOT WANT TO DISLOCATE MY HIP." ACCORDING TO DAY NURSE, ALISTAIR, SHE REFUSED TO HAVE HER DIANA CATHETER TAKEN OUT BECAUSE SHE WAS "GOING TO HAVE DIFFICULTY URINATING." SPOKE WITH HER SON, ABRAHAM AND HE WANTED TO MAKE SURE THAT HIS MOTHER DID NOT HAVE ANY NAUSEA OR STOMACH IRRITATION. HE SAID HE WILL COME VISIT HER THIS MORNING.
[2019-10-26] MEDS: POTASSIUM CHLORIDE 20 MEQ ERTAB PO PRN ×3 (05:43→19:42)
[2019-10-26] MEDS: HYDROCODONE/ACETAMINOPHEN 5/325 MG TAB PO PRN ×2 (05:43→15:39)
--- NOTE | 2019-10-26 08:00 | NUR ---
PT AAO X 3 REVIEW PLAN OF CARE, PT NOTED HAVING A DIANA CATHETER , PER REPORT , PT DID NOT WANT IT OUT. DUE TO PT . WILL HURT TO BE PLACE ON THE BEDPAN AND DID NOT WANT TO GO DOING THIS PAIN, SON DR. ROSARIO WITH PT .AND ALSO REMINDED HER THAT THE DIANA CATHETER NEEDS TO BE OUT. ASK HER AGAIN . STATED NO NOT NOW . CALL LIGHT IN REACH.
[2019-10-26] MEDS ORDERED: HYDROCHLOROTHIAZIDE 25 MG TABLET PO SCH (09:00)
[2019-10-26] MEDS: METOPROLOL SUCCINATE 50 MG TAB.SR.24H PO SCH (09:28)
[2019-10-26] MEDS: APIXABAN 2.5 MG TABLET PO SCH ×2 (09:28→20:53)
[2019-10-26] MEDS: PANTOPRAZOLE SODIUM 40 MG TABLET.DR PO SCH (09:29)
[2019-10-26] MEDS: FLUOXETINE HCL 10 MG CAPSULE PO SCH (09:31)
--- NOTE | 2019-10-26 10:20 | NUR ---
P.T. HERE FOR P.T. THERAPY / PT WAS ABLE TO GET UP TO THE BEDSIDE COMMODE , . TRY TO HAVE BM. , CHECK FOR CONSTIPATION , NOTED NO STOOL CLOSE TO RECTUM,, PT WAS ASSIT BACK TO BED ,, HOB UP . AND CALL LIGHT IN REACH,,,
[2019-10-26] MEDS: SODIUM CHLORIDE 0.9% 1000ML 1,000 ML IV SCH ×2 (10:57→22:50)
--- NOTE | 2019-10-26 11:30 | NUR ---
SL TO HER RT FOREARM . LEAKING AND DC . A PIV 22 ABBOCATH STARTED UNDER ASPECT TECH ,WITH GOOD BLOOD RETURN NOTED. SITE CARE GIVEN . CONT WITH IVF.
[2019-10-26] MEDS: MORPHINE SULFATE 2 MG/ML 1ML SYG IVP PRN ×2 (11:34→22:51)
--- NOTE | 2019-10-26 11:34 | NUR ---
MORPHNE 2 MG IV GIVEN FOR LEFT SIDE HIP PAIN , PAIN SCALE OF 8-10 CALL LIGHT IN REACH,
--- NOTE | 2019-10-26 13:34 | NUR ---
[place]: In to speak w pt this afternoon regarding order for [facility]. Pt sitting up in bed, alert and oriented x3. Pt mentions that she does not want to go to [facility]. She mentions that she plans to return home and her son is working on obtaining more assistance for her. She mentions that she was able to walk w PT today. Addendum: 10/26/19 at 1350 by PRO GUZMAN CM correction: She mentions that she was able to work w PT today. Asked pt if she felt safe to return home and if she would have sufficient assistance to help her in and out of bed. W bathing/dressing etc. Pt states yes. CM to continue to follow.
--- NOTE | 2019-10-26 14:17 | NUR ---
DCP UPDATE: FLAKO [facility]vel[facility] updated regarding pt declining SNF referral at this time. Pt provided verbal consent to reach out to pt's son Dr. Kilo Ames and update regarding dcp discussion. Call placed to Dr. Kilo Ames phone number [phone]. No answer, VM left to return call to .
--- NOTE | 2019-10-26 16:00 | NUR ---
WARM PRUME JUICE GIVEN FOR CONSTIPATION , PT STATED , THAT IT HELP HER STOOL CONSTIPATION .
--- NOTE | 2019-10-26 20:00 | NUR ---
TURNED Pt calm,denies pain,turned to her left side.Call light in reach.
--- NOTE | 2019-10-26 20:53 | NUR ---
GENNY Pt took her pill mohit well.Denies pain.
--- NOTE | 2019-10-26 22:55 | NUR ---
PAIN Pt crying,c/o severe pain to left hip,Medicated with Morphine Iv.
--- NOTE | 2019-10-26 23:55 | NUR ---
MED EFFECT Pt.quietly resting in bed,eyes closed.Respirations even and unlabored.
[2019-10-27] MEDS: OXYCODONE HCL 5 MG TAB PO PRN ×3 (02:04→20:46)
--- NOTE | 2019-10-27 02:12 | NUR ---
PAIN Pt awake,watching tv,seems to be in a good mood,medicated with Oxycodone as per request for c/o pain to her left hip.
--- NOTE | 2019-10-27 03:12 | NUR ---
MED EFFECT Pt sleeping,eyes closed.Respirations even and unlabored.
[2019-10-27 04:00] VITALS: BP 130/67
[2019-10-27 05:11] LABS: HEMATOCRIT 28.2 % (36-48); MEAN CORPUSCULAR HEMOGLOBIN 31.7 pg (27.0-33.0); MEAN CORPUSCULAR HGB CONC 31.9 g/dL (32.0-36.0); MEAN CORPUSCULAR VOLUME 99.3 fL (79-99); RED BLOOD CELL COUNT(AUTO) 2.84 MIL/uL (4.00-5.50); RED CELL DISTRIBUTION WIDTH 12.8 % (11.0-15.5); WHITE BLOOD COUNT (AUTO) 8.6 K/uL (4.8-10.8)
[2019-10-27 05:34] LABS: CREATININE 0.6 mg/dL (0.5-1.5); POTASSIUM 4.9 mmol/L (3.5-5.1)
--- NOTE | 2019-10-27 06:14 | NUR ---
STATUS Pt appears calm,denies pain or discomfort.
[2019-10-27 07:45] VITALS: BP 146/86
[2019-10-27] MEDS: APIXABAN 2.5 MG TABLET PO SCH ×2 (08:38→20:45)
[2019-10-27] MEDS: PANTOPRAZOLE SODIUM 40 MG TABLET.DR PO SCH (08:39)
[2019-10-27] MEDS: FLUOXETINE HCL 10 MG CAPSULE PO SCH (08:39)
[2019-10-27] MEDS: METOPROLOL SUCCINATE 50 MG TAB.SR.24H PO SCH ×2 (08:40→20:46)
--- NOTE | 2019-10-27 08:50 | NUR ---
PT POSITION . IN BED ,EXPLAIN TO PT REGARDING DC DIANA CATHETER , DIANA BALLOON DEFLATED , AND INSTRUCTION. FOR A DEEP BREATH HOLD AND DIANA CATHETER DC , TOLERATE WELL . DUE TO VOID, REQUEST A DIAPER . AND PLACED CALL LIGHT IN REACH
--- NOTE | 2019-10-27 09:05 | NUR ---
DR. CHRISTINA CALLED FOR UPDATE OF PT .A CARE, UPDATE . PT DIANA CATHETER WAS DC AFTER BREAKFAST. ALSO WANTED TO SPEAK WITH P.T. , STAFF HERE AND SPOKE WITH KYLE LANGLEY P.T. STAFF . REGARDING P.T. EVAL AND TREAT,
--- NOTE | 2019-10-27 09:50 | NUR ---
P.T. HERE AND OUT OF BED ,WITH STAFF . TOLERATE WELL . AND CALL LIGHT IN REACH,
[2019-10-27 11:00] VITALS: BP 171/83
[2019-10-27] MEDS ORDERED: DOCUSATE SODIUM 100 MG CAP PO SCH (11:00)
--- NOTE | 2019-10-27 12:50 | NUR ---
PT SAT UP IN CHAIR AFTER P.T. ACTIVITY .TOLEARATE WELL . VOIDED . AFTER DIANA CATHETER WAS DC. TOLERATE WELL
--- NOTE | 2019-10-27 15:00 | NUR ---
CM Note: [employer] pending approval, [facility] pending approval and delivery for DME CM spoke to pt declined placement prefers to go back home. CM called Dr Ames pt's son made aware pt declined placement prefers to go back home. Son in agreement prefers to have pt go back home, verbalized son will have someone to stay at w/pt 09/10. Agreeable for home w/HH and DME, telephone consent obtained for [facility] and [facility], witness by Madison CAMPOS. Dr Stratton updated, agreeable for home w/HH and DME, order entered. [place] [facility] updated, agreeable w/HH and and DME. Faxed order, clinicals, PT to [facility], confirmation received. Spoke to [employer] pending approval at this time. Faxed order, clinicals, PT to [facility] for standard walker no wheels and 3 in 1 chair, confirmation received. Pt pending approval and delivery at home. Primary nurse made aware of the above. CM to cont to follow up.
[2019-10-27 16:00] VITALS: BP 134/95
--- NOTE | 2019-10-27 17:55 | NUR ---
PT STATED THAT SHE NEEDED TO BE CHANGED DUE TO FACT THAT SHE VOIDED ON HER DIAPER .AND WAS SATURATED , ASSIT CARE. DIAPER WITH SM AMT OF URINE , ALSO STATED THAT SHE HAS BEEN HAVING FREQUENCY . VOIDS AND NEEDED SOME ANTIBOTIC FOR A URINE TRACT INFECTIONS THAT SHE GETS ALL THE TIME, WILL REFER CONCERNS .
--- NOTE | 2019-10-27 18:10 | NUR ---
PAGED COLTEN ROJAS [facility] , , VOICED MAIL . MESSAGE LEFT TO CALL ME . BACK .
--- NOTE | 2019-10-27 18:45 | NUR ---
DR. CHRISTINA WAS CALLED, REGARDING THAT PT . WANTED FOR HIM TO KNOW THAT SHE NEEDED ANTIBOTIC THERAPY DUE TO HX OF FREQ UTI. ORDERS TO GET A UA , AND TO ALSO LET [employer] KNOW REGARDING THE URINE ORDER AND FOLLOWUP WITH ANTIBOTICS
--- NOTE | 2019-10-27 18:50 | NUR ---
UPDATE . PT REGARDING NEEDED A URINE SAMPLE AND TO ASK FOR BEDPAN TO COLLECT URINE , CALL LIGHT IN REACH,.
[2019-10-27 20:04] VITALS: BP 155/74
--- NOTE | 2019-10-27 23:00 | NUR ---
BATH Pt was given a bedbath per staff,denies pain this time.
--- NOTE | 2019-10-27 23:07 | NUR ---
REST Pt resting comfortably,she states she will let u know when she can give us urine sample,she wantes to sleep and use diaper this time.
[2019-10-28 00:04] VITALS: BP 147/75
[2019-10-28 00:05] LABS: APPEARANCE,URINE Cloudy (CLEAR); BILIRUBIN,URINE Negative (NEGATIVE); COLOR,URINE Dark Yellow (YELLOW); GLUCOSE, URINE (UA) Negative (NEGATIVE); KETONES,URINE Trace mg/dL (NEGATIVE); LEUKOCYTE ESTERASE ,URINE Trace (NEGATIVE); NITRATE,URINE Negative (NEGATIVE); OCCULT BLOOD,URINE Small (NEGATIVE); PROTEIN,URINE POS 1+ mg/dL (NEGATIVE)
[2019-10-28 00:29] LABS: BACTERIA,URINE Moderate /HPF (None Seen); MUCUS,URINE Rare LPF (None Seen); RBC,URINE 0-1 /HPF (0-1); SQUAMOUS EPITHELIAL CELL,UR Moderate /HPF (0-2)
--- NOTE | 2019-10-28 00:29 | NUR ---
UA Urine was sent to lab.
--- NOTE | 2019-10-28 03:24 | NUR ---
REST Pt resting quietly,no distress noted.
[2019-10-28 04:04] VITALS: BP 154/88
[2019-10-28] MEDS: HYDROCODONE/ACETAMINOPHEN 5/325 MG TAB PO PRN ×4 (04:46→13:01)
--- NOTE | 2019-10-28 04:48 | NUR ---
PAIN Pt started crying when she got moved for her incontinent care,c/o of pain.Medicated with Hydrocodone.
--- NOTE | 2019-10-28 05:48 | NUR ---
MED EFFECT Pt calm,resting with eyes closed.Respirations even and unlabored.
[2019-10-28 08:00] VITALS: BP 140/72
[2019-10-28] MEDS: DOCUSATE SODIUM 100 MG CAP PO SCH (08:28)
[2019-10-28] MEDS: FLUOXETINE HCL 10 MG CAPSULE PO SCH (08:29)
[2019-10-28] MEDS: METOPROLOL SUCCINATE 50 MG TAB.SR.24H PO SCH ×2 (08:29→19:38)
[2019-10-28] MEDS: PANTOPRAZOLE SODIUM 40 MG TABLET.DR PO SCH (08:29)
--- NOTE | 2019-10-28 08:30 | NUR ---
DR. ROSARIO SON . AT THE BEDSIDE, UPDATE . REGARDING UA DONE , PT . WAS STARTED ON BACTRIM DS. PO GIVEN . . STATED THAT HE WAS GOING TO SPEAK WITH THE DRToby REGARDING THE MEDICATION . . DUE TO PT NEEDED ONE THAT SHE COULD TAKE FOR IT . BETTER ONE,
--- NOTE | 2019-10-28 08:50 | NUR ---
pelvis x-ray done . in the room .
--- NOTE | 2019-10-28 08:54 | NUR ---
PAIN , SCORE OF1-3 A 3 GAVE NORCO-5/325 1 TAB. GIVEN
--- NOTE | 2019-10-28 08:55 | NUR ---
NORCO ONE TAB . 5/325 MG PO GIVEN FOR PAIN OF 1-5- A 3 .
[2019-10-28] MEDS ORDERED: SULFAMETHOX-TMP DS 800/160 TAB PO SCH (09:00)
--- NOTE | 2019-10-28 09:00 | NUR ---
P.T. STAFF HERE , SEE ACTIVITY RESULTS . PER P.T. ASSESSMENT .
[2019-10-28] MEDS ORDERED: METO-408 PO (09:40)
[2019-10-28] MEDS ORDERED: ESOM20CA60 PO (09:40)
--- NOTE | 2019-10-28 10:30 | NUR ---
PT SITTING IN THE CHAIR, ASSESS HER PAIN STATED THAT HER PAIN IS WHEN SHE GET UP. AND AMBULATE . SHE STATED THAT SHE IS FINE NOW. . REVIEW FALL RISK AND CALL LIGHT IN REACH
[2019-10-28 12:00] VITALS: BP 130/70
[2019-10-28] MEDS: APIXABAN 2.5 MG TABLET PO SCH ×2 (13:01→19:38)
--- NOTE | 2019-10-28 13:01 | NUR ---
PAIN NORCO. 5/325 ONE TAB PO GIVEN FOR PAIN OF 3 .
--- NOTE | 2019-10-28 13:50 | NUR ---
DR. AMANDA CALLED RESULTS OF THE PELVIS 1-2 VIEW GIVEN. WITH DISCHARGE HOME , AND A FOLLOWUP APPT. IN 10-14 DAYS AND DRSG CARE AT HOME,
--- NOTE | 2019-10-28 14:00 | NUR ---
CM Note: [facility] approval CM spoke to [facility], pt has approval. Primary nurse made aware. CM to cont to follow up.
--- NOTE | 2019-10-28 14:10 | NUR ---
WENT TO ROOM . FOR PAIN ASSESSMENT . STATED THAT SHE WAS OKAY , TIRED , . CALL LIGHT IN REACH, . WANTED TO REST .
[2019-10-28] MEDS ORDERED: NITR100C4 PO (14:37)
--- NOTE | 2019-10-28 15:50 | NUR ---
DRSG TO HER LEFT HIP , REMOVED . AND CHANGE, NOTED STERI TO LONG LATERAL SITE TO HER LEFT HIP AREA CLEAN SITE NOTED NO DRAINAGE . APPLICATION OF TELFA - NON ADHERENT PAD X 3 PLACED TO SITE ,AND SECURE WITH TAPE. EDUCATION OF DRSG CHANGES REVIEW. TOLERATE WELL.
--- NOTE | 2019-10-28 15:55 | NUR ---
PIV TO HER RFA DC , . WITH SITE PRESSURE . NOTED NO REDNESS OR HEMATOMA . SM PRESSURE APPLICATION ON .
[2019-10-28 16:00] VITALS: BP 127/70
--- NOTE | 2019-10-28 16:10 | NUR ---
WENT TO ROOM TO CONT. DISCHARGE CARE . PT SPEAKING TO HER SON { DR. ROSARIO ON THE PHONE, PT. ASKING ME TO SPEAK WITH DR. ROSARIO. REGARDING SOME DISCHARGE CHANGES . DR. ROSARIO STATED THAT HE HAD TEXT DR. VU. [facility] .ROUNDING TODAY . AND AGREE TO HOLD DISCHARGE TILL TOMMORROW . BECAUSE OF NEEDED HOME ARRANGEMENT. AND NEEDED P.T. CARE. BEFORE SHE GOES HOME,, WILL CHECK FOR ORDERS
--- NOTE | 2019-10-28 16:25 | NUR ---
CALLED DR. VU. ANSWER WAS PER CHANDAN GALDAMEZ. TYLER Grayson [facility] UPDATE OF PT. SON STATEMENT .WITH ORDERS TO HOLD DISCHARGE TILL TOMMORROW. UPDATE ALSO IF THE MEDICATION FOR HER UTI THAT WAS SHE HAS A PRESCRIPTION IF IT CAN BE STARTED WITH ORDERS RECIEVED .
[2019-10-28] MEDS: NITROFURANTOIN MONOHYD/M-CRYST 100 MG CAPSULE PO SCH ×2 (17:00→19:38)
--- NOTE | 2019-10-28 17:10 | NUR ---
DR. AMANDA CALLED , LEFT MESSAGE ON VOICE MAIL . REGARDING A UPDATE OF PT. NOT GOING HOME TODAY ARRANGEMENT FOR TOMMORROW. DISCHARGE .
[2019-10-28 20:04] VITALS: BP 142/80
[2019-10-28] MEDS: OXYCODONE HCL 5 MG TAB PO PRN (23:14)
[2019-10-29 00:16] VITALS: BP 139/71
[2019-10-29 04:16] VITALS: BP 159/78
[2019-10-29] MEDS: FLUOXETINE HCL 10 MG CAPSULE PO SCH (09:24)
[2019-10-29] MEDS: DOCUSATE SODIUM 100 MG CAP PO SCH (09:24)
[2019-10-29] MEDS: METOPROLOL SUCCINATE 50 MG TAB.SR.24H PO SCH (09:24)
[2019-10-29] MEDS: OXYCODONE HCL 5 MG TAB PO PRN (09:26)
[2019-10-29] MEDS: PANTOPRAZOLE SODIUM 40 MG TABLET.DR PO SCH (09:26)
[2019-10-29] MEDS: APIXABAN 2.5 MG TABLET PO SCH (09:27)
[2019-10-29] MEDS: NITROFURANTOIN MONOHYD/M-CRYST 100 MG CAPSULE PO SCH ×2 (09:28→13:36)
[2019-10-29 09:49] VITALS: BP 171/90
--- NOTE | 2019-10-29 10:29 | NUR ---
RUBEN Note: [facility] approval CM spoke to [facility], pt has own 3 in 1 chair, approved for standard wkr, verbalized will deliver DME at pt's house this afternoon. Primary nurse aware. Pt safe to DC via private car once MD clear. CM to cont to follow up.
[2019-10-29 12:21] VITALS: BP 140/93
--- NOTE | 2019-10-29 13:48 | NUR ---
[facility] REPORT GIVEN TO [facility] AND THEY ARE AWARE OF PT STATUS.
--- NOTE | 2019-10-29 13:52 | NUR ---
SON DR. ROSARIO SON STATED THAT WALKER HAS NOT ARRIVED YET. PER CM JEREMIAH SHE IS TO BE DISCHARGED BY 2PM.
--- NOTE | 2019-10-29 13:56 | NUR ---
D/C PT A/A X 3 , VS, DRESSING DRY AND INTACT, DP TO RT FOOT PRESENT, FOOT WARM . PT LEFT VIA WHEELCHAIR W/O COMPLICATION, PT HAD NO CLEAN CLOTHES, PT STATED, THAT SHE WILL GO IN HER GOWN, (SON) DR. ROSARIO STATED THAT WAS FINE FOR HER TO GO IN A GOWN. PT LEFT VIA WHEELCHAIR, IN PVT CAR.
--- NOTE | 2019-10-29 15:15 | NUR ---
DR. CHRISTINA CALL PAIN MED TO [facility] [place]
== END 2019-10-29 14:00 | disposition home health service (06) | DRG 470 ==
LOC: EDH 21:50 → OBSVTOIN 23:35 → EDHIP 23:35 → 3BH 10-24 04:15 → 3CH 10-24 12:13
PROVIDERS: ADMIT Internal Medicine; ATTEND Internal Medicine
PROC: 0SRS0J9 Replacement of Left Hip Joint, Femoral Surface with Synthetic Substitute, Cemented, Open Approach (ICD-10-PCS; principal; 2019-10-24 14:23)
DX: S72.052A Unspecified fracture of head of left femur, initial encounter for closed fracture (principal); I48.20 Chronic atrial fibrillation, unspecified; N39.0 Urinary tract infection, site not specified; Z79.01 Long term (current) use of anticoagulants; F32.9 Major depressive disorder, single episode, unspecified; I11.9 Hypertensive heart disease without heart failure; K59.00 Constipation, unspecified; Z20.828 Contact with and (suspected) exposure to other viral communicable diseases; Z82.3 Family history of stroke; Z82.49 Family history of ischemic heart disease and other diseases of the circulatory system; Z82.5 Family history of asthma and other chronic lower respiratory diseases; Z83.3 Family history of diabetes mellitus; Z86.73 Personal history of transient ischemic attack (TIA), and cerebral infarction without residual deficits; Z82.0 Family history of epilepsy and other diseases of the nervous system; Z79.899 Other long term (current) drug therapy; Z79.02 Long term (current) use of antithrombotics/antiplatelets; Z90.710 Acquired absence of both cervix and uterus; W18.30XA Fall on same level, unspecified, initial encounter; Y93.89 Activity, other specified; Y99.8 Other external cause status; Y92.009 Unspecified place in unspecified non-institutional (private) residence as the place of occurrence of the external cause
CPT/HCPCS: 36415; 70450; 71045; 72170; 73502; 73552; 80048; 80053; 81001; 82550; 84484; 85025; 85027; 85610; 85730; 87088; 87426; 93005; 97039; A4606; C1776; G0378; J0690; J1100; J2001; J2370; J2405; J2704; J3010; J3370; J3490; J7030; U0003

== ENCOUNTER 2021-05-12 12:59 | Emergency (ER) | payer OTHER ==
[~2021-05-12] VITALS: Ht 162.6 cm; Wt 54.4 kg
[~2021-05-12 12:59] MED LIST changes: +APIX2.5T PO; -CLOP75TA14 PO; +ESOM20CA60 PO; -HYDR12.54 PO; +METO-408 PO; +NITR100C4 PO
[2021-05-12 14:16] LABS: BASOPHILS % (AUTO) 0.7 % (0.0-5.0); EOSINOPHILS % (AUTO) 1.8 % (0.0-8.0); HEMATOCRIT 38.1 % (36-48); LYMPHOCYTES % (AUTO) 24.5 % (21.0-51.0); MEAN CORPUSCULAR HEMOGLOBIN 30.4 pg (27.0-33.0); MEAN CORPUSCULAR HGB CONC 32.5 g/dL (32.0-36.0); MEAN CORPUSCULAR VOLUME 93.4 fL (79-99); MONOCYTES % (AUTO) 8.7 % (3.0-13.0); NEUTROPHILS % (AUTO) 63.9 % (40.0-77.0); PLATELET COUNT (AUTO) 194 K/uL (130-400); RED BLOOD CELL COUNT(AUTO) 4.08 MIL/uL (4.00-5.50); RED CELL DISTRIBUTION WIDTH 14.1 % (11.0-15.5); WHITE BLOOD COUNT (AUTO) 8.5 K/uL (4.8-10.8)
[2021-05-12 14:25] LABS: CREATININE 0.8 mg/dL (0.5-1.5); POTASSIUM 3.7 mmol/L (3.5-5.1)
[2021-05-12 14:29] LABS: INR 1.03 (0.85-1.15); PROTHROMBIN TIME 11.2 SEC (9.6-11.6)
[2021-05-12 14:30] LABS: ALBUMIN 3.8 g/dL (3.5-5.0); BILIRUBIN,TOTAL 0.5 mg/dL (0.2-1.0); PARTIAL THROMBOPLASTIN TIME 24.8 SEC (26.3-35.5); TOTAL PROTEIN, SERUM 6.9 g/dL (6.0-8.3)
[2021-05-12] MEDS ORDERED: ACET-66 PO (14:46)
[2021-05-12 14:52] LABS: APPEARANCE,URINE CLEAR (CLEAR); BILIRUBIN,URINE NEGATIVE (NEGATIVE); COLOR,URINE YELLOW (YELLOW); GLUCOSE, URINE (UA) NEGATIVE (NEGATIVE); KETONES,URINE NEGATIVE (NEGATIVE); LEUKOCYTE ESTERASE ,URINE NEGATIVE (NEGATIVE); NITRATE,URINE NEGATIVE (NEGATIVE); OCCULT BLOOD,URINE SMALL (NEGATIVE); PH,URINE 5.5 (5.0-8.0); PROTEIN,URINE TRACE mg/dL (NEGATIVE); UROBILINOGEN,URINE 0.2 mg/dL (0.2-1.0)
[2021-05-12 14:59] VITALS: BP 156/82
[2021-05-12 14:59] LABS: WBC,URINE 0-1 /HPF (0-1)
[2021-05-12 15:00] LABS: BACTERIA,URINE Few /HPF (None Seen); MUCUS,URINE Rare LPF (None Seen); SQUAMOUS EPITHELIAL CELL,UR Moderate /HPF (0-2)
[2021-05-12] MEDS ORDERED: ONDA4TAB10 PO (15:17)
== END 2021-05-12 15:15 | disposition home or self-care (01) ==
LOC: EDH 12:59
DX: M54.2 Cervicalgia (principal); M25.512 Pain in left shoulder; M79.651 Pain in right thigh; Z79.01 Long term (current) use of anticoagulants; Z79.899 Other long term (current) drug therapy; V49.49XA Driver injured in collision with other motor vehicles in traffic accident, initial encounter; Y93.89 Activity, other specified; Y92.89 Other specified places as the place of occurrence of the external cause; Y99.8 Other external cause status
CPT/HCPCS: 36415; 70450; 72125; 73552; 80053; 81001; 85025; 85610; 85730

== ENCOUNTER 2022-02-15 14:40 | Emergency (ER) | payer OTHER ==
[~2022-02-15] VITALS: Ht 165.1 cm; Wt 61.2 kg
[~2022-02-15 14:40] MED LIST changes: +ACET-66 PO; +AMLO2.5T2 PO; +CLOP-31 PO; +ISOS30TA92 PO; -METO-408 PO; +METO25TA6 PO; -NITR100C4 PO; +ONDA4TAB10 PO; +ROSU10TA22 PO
[2022-02-15] MEDS ORDERED: ACETAMINOPHEN 500 MG TABLET PO ONE (15:00)
[2022-02-15 15:47] LABS: BASOPHILS % (AUTO) 0.3 % (0.0-5.0); EOSINOPHILS % (AUTO) 2.6 % (0.0-8.0); HEMATOCRIT 33.7 % (36-48); LYMPHOCYTES % (AUTO) 18.9 % (21.0-51.0); MEAN CORPUSCULAR HEMOGLOBIN 29.4 pg (27.0-33.0); MEAN CORPUSCULAR HGB CONC 33.8 g/dL (32.0-36.0); MEAN CORPUSCULAR VOLUME 86.9 fL (79-99); MONOCYTES % (AUTO) 10.1 % (3.0-13.0); NEUTROPHILS % (AUTO) 67.3 % (40.0-77.0); PLATELET COUNT (AUTO) 151 K/uL (130-400); RED BLOOD CELL COUNT(AUTO) 3.88 MIL/uL (4.00-5.50); RED CELL DISTRIBUTION WIDTH 13.1 % (11.0-15.5); WHITE BLOOD COUNT (AUTO) 7.8 K/uL (4.8-10.8)
[2022-02-15] MEDS ORDERED: ACETAMINOPHEN 500 MG TABLET ONE (15:52)
[2022-02-15 16:09] LABS: ALBUMIN 3.7 g/dL (3.5-5.0); CREATININE 0.9 mg/dL (0.5-1.5); POTASSIUM 3.8 mmol/L (3.5-5.1); TOTAL PROTEIN, SERUM 6.8 g/dL (6.0-8.3)
[2022-02-15] MEDS ORDERED: ONDANSETRON 4MG INJ IVP ONE (17:30)
[2022-02-15] MEDS ORDERED: MORPHINE 2 MG SYG IVP ONE (17:30)
[2022-02-15 18:28] VITALS: BP 166/62
== END 2022-02-15 19:14 | disposition home or self-care (01) ==
LOC: EDH 14:40
DX: S32.502A Unspecified fracture of left pubis, initial encounter for closed fracture (principal); Z90.710 Acquired absence of both cervix and uterus; Z79.899 Other long term (current) drug therapy; W01.0XXA Fall on same level from slipping, tripping and stumbling without subsequent striking against object, initial encounter; Y93.89 Activity, other specified; Y92.89 Other specified places as the place of occurrence of the external cause; Y99.8 Other external cause status
CPT/HCPCS: 99285; 70450; 96374; 97161; 71045; 96375; 84484; 80053; 85025; 86850; 86900; 86901; 36415; 73552; 72170; 72125; 74176; 97039; 93005; J2405